=== PATIENT | female | born 1950 | race Caucasian/White ===

== ENCOUNTER 2021-11-29 08:04 | Inpatient (IN) | payer MEDICARE ==
[2021-11-29] MEDS ORDERED: Sodium Chloride 0.9% 1,000 ML IV ONE (08:28)
[2021-11-29] MEDS ORDERED: LORazepam 2 MG/ML SDV IVPUSH ONE (09:29)
[2021-11-29] MEDS ORDERED: LORazepam 2 MG/ML SDV ONE (09:38)
[2021-11-29 10:35] LABS: ESTIMATED GFR 21 mL/min (>60)
[2021-11-29] MEDS ORDERED: Phytonadione 5 MG Tab PO ONE (10:55)
[2021-11-29] MEDS ORDERED: Glucagon,Human Recombinant 1 MG Vial IM PRN (12:22)
[2021-11-29] MEDS ORDERED: 50% Dextrose in Water 50 ML Syringe IVPUSH PRN (12:22)
[2021-11-29] MEDS ORDERED: Acetaminophen 325 MG Tab PO PRN (12:24)
[2021-11-29] MEDS ORDERED: Promethazine 12.5 MG in Sodium Chloride 0.9% 50 ML IV PRN (12:24)
[2021-11-29] MEDS ORDERED: Cyclobenzaprine 10 MG Tab PO PRN (12:48)
[2021-11-29] MEDS ORDERED: LORazepam 1 MG Tab PO PRN (12:50)
[2021-11-29] MEDS: Furosemide 20 MG/2 ML VIAL IVPUSH ONE ×2 (15:39→18:48)
[2021-11-29] MEDS ORDERED: Phytonadione 5 MG in Sodium Chloride 0.9% 50 ML IV ONE (17:10)
[2021-11-29] MEDS ORDERED: Furosemide 20 MG/2 ML VIAL ONE (18:42)
[2021-11-29] MEDS ORDERED: Pantoprazole 40 MG Vial IVPUSH SCH (20:00)
[2021-11-29] MEDS ORDERED: Ondansetron 4 MG Tab.DIS PO ONE (20:29)
[2021-11-29] MEDS ORDERED: Ondansetron 4 MG Tab.DIS ONE (20:32)
[2021-11-29] MEDS ORDERED: Metoclopramide 10 MG Tab PO ONE (21:20)
[2021-11-29] MEDS ORDERED: LORazepam 1 MG Tab PO ONE (21:21)
[2021-11-29] MEDS ORDERED: Metoclopramide 10 MG Tab ONE (21:23)
[2021-11-29] MEDS ORDERED: LORazepam 1 MG Tab ONE (21:23)
[2021-11-30] MEDS ORDERED: Insulin Glargine,Human Rec. Analog 100 Units/ML 3 ML Pen SUBCUT SCH (08:00)
[2021-11-30] MEDS ORDERED: Pantoprazole 40 MG Tab.CR PO SCH (08:00)
[2021-11-30] MEDS ORDERED: Aspirin 81 MG Tab.Chew PO SCH (08:00)
[2021-11-30] MEDS ORDERED: Insulin Aspart 100 Units/ML 3 ML Pen SUBCUT SCH (08:00)
[2021-11-30] MEDS ORDERED: Lisinopril 5 MG Tab PO SCH (08:00)
== END 2021-11-29 21:38 | disposition home or self-care (01) | DRG 812 ==
LOC: LB.ED 08:04 → LB.MS 12:21
PROVIDERS: ADMIT Physician Assistant; ATTEND Physician Assistant
DX: D50.0 Iron deficiency anemia secondary to blood loss (chronic) (principal); N17.9 Acute kidney failure, unspecified; E11.9 Type 2 diabetes mellitus without complications; Z20.822 Contact with and (suspected) exposure to COVID-19; Z79.82 Long term (current) use of aspirin; Z79.4 Long term (current) use of insulin; Z79.01 Long term (current) use of anticoagulants; Z88.5 Allergy status to narcotic agent; Z79.899 Other long term (current) drug therapy
CPT/HCPCS: 36415; 36430; 71045; 80053; 83605; 83880; 85025; 85379; 85610; 86850; 86900; 86901; 86920; 86922; 93005; A9270; J2060; J7030; U0002; 80048; 81001; 85018; 96361; 96374; 99285-25; A0425; A0429; C9113; J1940; J3430; J3490; P9016; Q0162